=== PATIENT | male | born 1960 | race Asian ===

== ENCOUNTER 2017-03-12 15:12 | Emergency (ER) | payer OTHER ==
[~2017-03-12] VITALS: Ht 157.5 cm; Wt 64.5 kg
[2017-03-12 15:16] VITALS: Ht 157.5 cm; Wt 64.5 kg
[2017-03-12 17:07] LABS: ADD UMIC YES; UR BILIRUBIN (Dip) 1+ (NEGATIVE); UR BLOOD (Dip) NEGATIVE (NEGATIVE); UR CLARITY SLIGHTLY CLOUDY (CLEAR); UR COLOR YELLOW (YELLOW); UR GLUCOSE (Dip) NEGATIVE (NEGATIVE); UR KETONES (Dip) 15 (NEGATIVE); UR LEUKOCYTE ESTERASE (Dip) NEGATIVE (NEGATIVE); UR NITRITE (Dip) NEGATIVE (NEGATIVE); UR TOTAL PROTEIN (Dip) 1+ (NEGATIVE); UR UROBILINOGEN (Dip) 1.0 E.U./dL (0.1-1.0)
--- NOTE | 2017-03-12 17:24 | RADRPT ---
PROCEDURE: US Scrotum. CLINICAL INDICATION: Left scrotal pain. TECHNIQUE: Multiple sonographic images of the scrotal region were obtained utilizing a linear arra y transducer with grayscale and color-flow and pulsed Doppler imaging. The images were reviewed on a high-resolution PACS workstation. COMPARISON: No prior studies are available for comparison. FINDINGS: The right testis measures 3.8 x 2.1 x 2.9 cm. The left testis measures 3.6 x 2.7 x 2.8 cm. There is no intratesticular mass. The right epididymis is normal. The left epididymis is enlarged, heterogeneous, and hyperemic consi stent with epididymitis. There is normal flow to both testes demonstrated with color Doppler and pulsed Doppler sonography. There is no hydrocele. There is no varicocele. There is thickening of the left scrotal skin. IMPRESSION: 1. Left epididymitis. 2. Thickening of the left scrotal skin. 3. Otherwise normal scrotal ultrasound. RPTAT: QQ .Isidro Upton MD, MD Date Time Electronically viewed and signed by .Isidro Upton MD, on 03/12/2017 17:24 .R/
[2017-03-12 17:42] LABS: ICTOTEST NEGATIVE (NEGATIVE); UR BACTERIA FEW; UR MUCUS MODERATE; URINE RBCS 0-2 /HPF (0)
[2017-03-12] MEDS ORDERED: IBUP800T25 PO (17:54)
[2017-03-12 17:55] VITALS: BP 112/70; PULSE 78; RESP 18; TEMP 98.2
--- NOTE | 2017-03-12 17:57 | ERD ---
ER Documentation Chief Complaint Date/Time DATE: 03/12/17 TIME: 17:55 Chief Complaint TESTICULAR PAIN AND SWELLING, SENT BY PCP FOR TREATMENT OF INFECTION HPI Patient is a 56-year-old male who presents with left testicular pain and swelling that he has had for 1 week. He saw his primary care doctor 3 days ago who started him on Bactrim and Augmentin which she is taking and he states he has had about 50% improvement but continues to have swelling and pain. He denies any fever. He denies any bleeding or discharge. He denies any dysuria or increased urinary frequency. He denies any nausea or vomiting. He states he has had epididymitis on the right side one year ago and that resolved with antibiotics and this feels similar. ROS All systems reviewed and are negative except as per history of present illness. Medications Home Meds Active Scripts Ibuprofen* (Motrin*) 800 Mg Tab, 800 MG PO Q6, #30 TAB Prov:EGANCON CARDOZO PA-C 03/12/17 Allergies Allergies: Coded Allergies: No Known Allergy (Unverified , 03/12/17) PMhx/Soc History of Surgery: No Anesthesia Reaction: No Hx Neurological Disorder: No Hx Respiratory Disorders: No Hx Cardiac Disorders: No Hx Psychiatric Problems: No Hx Miscellaneous Medical Probl: No Hx Alcohol Use: No Hx Substance Use: No Hx Tobacco Use: No Smoking Status: Never smoker FmHx Family History: No diabetes Physical Exam Vitals Vital Signs Date Time Temp Pulse Resp B/P Pulse Ox O2 Delivery O2 Flow Rate FiO2 03/12/17 15:16 99.0 98 18 114/70 98 Physical Exam General: well developed, well nourished, alert, nontoxic, no distress Head: normocephalic, atraumatic Neck: Supple, nontender, no lymphadenopathy, no midline tenderness Respiratory: Clear to auscaultation bilaterally, speaks in full sentences, no use of accesory muscles or labored breathing, no rales, ronchi, or wheezing Cardiovascular: RRR, No murmurs GI: soft, non tender, non distended, negative murphys sign, negative mcburneys point tenderness, no cva tenderness bilaterally, no rebound or guarding gu: Left testicle swelling 2+ with tenderness, no erythema, no inguinal lymphadenopathy, no drainage or bleeding Results 24 hrs Laboratory Tests Test 03/12/17 16:48 Urine Color YELLOW Urine Clarity SLIGHTLY CLOUDY Urine pH 6.0 Urine Specific [place] >=1.030 Urine Ketones 15 Urine Nitrite NEGATIVE Urine Bilirubin 1+ Urine Ictotest NEGATIVE Urine Urobilinogen 1.0 E.U./dL Urine Leukocyte Esterase NEGATIVE Urine Microscopic RBC 0-2/HPF Urine Microscopic WBC 5-10/HPF Urine Bacteria FEW Urine Mucus MODERATE Urine Hemoglobin NEGATIVE Urine Glucose NEGATIVE% Urine Total Protein 1+ Procedures/MDM Patient has left testicular pain and swelling. Ultrasound is consistent with epididymitis and there is no evidence of torsion. Patient is already on the appropriate antibiotics of Bactrim and Keflex and I recommend he continue to take this. He also has Vancleve at home which he states helps but he does not like how it makes him feel so he would like a prescription for Motrin which I gave him. Recommended this patient follow up with her primary care doctor within 48 hours or return to the emergency room for any worsening of symptoms. However this time I do believe there is suitable for outpatient management. I answered all their questions and they agreed with the plan and were discharged home. Departure Diagnosis: Primary Impression: Epididymitis Condition: Stable Patient Instructions: Epididymitis Additional Instructions: Call your primary care doctor TOMORROW for an appointment during the next 1-2 days.See the doctor sooner or return here if your condition worsens before your appointment time. CON EGAN PA-C Mar 12, 2017 17:57
== END 2017-03-12 17:55 | disposition home or self-care (01) ==
LOC: FTE 15:12
DX: N45.1 Epididymitis (principal)
CPT/HCPCS: 76870; 81001